=== PATIENT | male | born 1980 | race African-American/Black ===

== ENCOUNTER 2019-09-25 02:26 | Emergency (ER) | payer SELFPAY ==
[~2019-09-25] VITALS: Ht 175.3 cm; Wt 104.5 kg
[2019-09-25 02:40] VITALS: Ht 175.3 cm; Wt 104.5 kg
[2019-09-25 03:20] LABS: APPEARANCE CLEAR (CLEAR); COLOR YELLOW (YELLOW)
[2019-09-25 03:21] LABS: BILIRUBIN NEGATIVE (NEGATIVE); GLUCOSE NEGATIVE (NEGATIVE); KETONE NEGATIVE (NEGATIVE); NITRITE NEGATIVE (NEGATIVE); PROTEIN TRACE mg/dL (NEGATIVE); UROBILINOGEN NORMAL (NORMAL)
[2019-09-25 03:22] LABS: BACTERIA NONE SEEN /hpf (NEGATIVE); EPITHELIAL CELLS 0-5 /hpf (0-5); RED CELLS - URINE NONE SEEN /hpf (0-5); WHITE CELLS - URINE 0-5 /hpf (NEGATIVE)
[2019-09-25 03:34] LABS: BASOPHILS 0.2 % (0-2); EOSINOPHILS 4.8 % (0-7); HEMATOCRIT 45.3 % (36.0-48.0); HEMOGLOBIN 15.5 g/dL (12-16); IMMATURE GRANULOCYTES 0.4 % (0-5); LYMPHOCYTES 37.9 % (15-50); MCH 29.1 pg (26.0-34.0); MCHC 34.2 g/dL (31.0-37.0); MCV 85.2 fL (80.0-100.0); MEAN PLATELET VOLUME 9.9 fL (7.4-10.4); MONOCYTES 6.5 % (2-11); NEUTROPHILS 50.2 % (40-80); PLATELET COUNT 256 10x3/uL (130-400); RBC 5.32 10x6/uL (4.00-5.40); RDW 13.6 % (11.5-14.5); WBC 5.4 10x3/uL (4.8-10.8)
[2019-09-25] MEDS ORDERED: PEPCID40 MG PO (03:36)
[2019-09-25] MEDS ORDERED: SMZ-TMP DS TABL1 TAB PO (03:36)
[2019-09-25] MEDS ORDERED: KEFLEX500 MG PO (03:36)
[2019-09-25 03:41] LABS: CALC OSMOLALITY 280 mosm/kg (275-300); CALCIUM 7.8 mg/dL (8.5-10.1); CARBON DIOXIDE 26.5 mmol/L (21.0-32.0); CHLORIDE - SERUM 107 mmol/L (98-107); CREATININE - SERUM 1.1 mg/dL (0.6-1.3); GLUCOSE 106 mg/dL (74-106); POTASSIUM - SERUM 4.1 mmol/L (3.5-5.1); SODIUM 141 mmol/L (136-145); UREA NITROGEN 12 mg/dL (7-18); eGFR NON AFRICAN AMERICAN 58 mL/min (90-120)
[2019-09-25 03:49] LABS: ALBUMIN 3.4 g/dL (3.4-5.0); ALKALINE PHOSPHATASE 85 U/L (30-120); ALT (SGPT) 33 U/L (10-68); AMYLASE - SERUM 209 U/L (25-115); BILIRUBIN - TOTAL 0.37 mg/dL (0.2-1.3); LIPASE 141 U/L (73-393); PROTEIN - SERUM 6.9 g/dL (6.4-8.2)
[2019-09-25 03:52] LABS: TROPONIN-I < 0.017 ng/mL (0.000-0.060)
[2019-09-25 05:12] VITALS: BP 141/88
== END 2019-09-25 05:12 | disposition home or self-care (01) ==
LOC: EDSEX 02:26 → D.ER 02:26
PROVIDERS: Family Medicine
DX: R10.32 Left lower quadrant pain (principal); K21.9 Gastro-esophageal reflux disease without esophagitis; R51 Headache; I10 Essential (primary) hypertension; Z72.0 Tobacco use; S00.03XA Contusion of scalp, initial encounter

== ENCOUNTER 2020-04-15 09:43 | Emergency (ER) | payer OTHER ==
[~2020-04-15] VITALS: Ht 175.3 cm; Wt 111.4 kg
[~2020-04-15 09:43] MED LIST: KEFLEX500 MG PO; PEPCID40 MG PO; SMZ-TMP DS TABL1 TAB PO
[2020-04-15 09:49] VITALS: BP 150/96; Ht 175.3 cm; Wt 111.4 kg
[2020-04-15] MEDS ORDERED: NAPROSYN500 MG PO (11:23)
[2020-04-15] MEDS ORDERED: CYCLOBENZAPRINE10 MG PO (11:23)
== END 2020-04-15 12:23 | disposition home or self-care (01) ==
LOC: D.ER 09:43
DX: M79.10 Myalgia, unspecified site (principal); V89.2XXA Person injured in unspecified motor-vehicle accident, traffic, initial encounter; M54.2 Cervicalgia; I10 Essential (primary) hypertension